=== PATIENT | female | born 1995 | race African-American/Black ===

== ENCOUNTER 2021-06-01 20:49 | Emergency (ER) | payer MEDICAID ==
[~2021-06-01] VITALS: Ht 167.6 cm; Wt 90.4 kg
[2021-06-01 21:28] LABS: BASO # 0.1 x10^3/uL (0.0-0.2); BASO % 2 % (0-3); EOS # 0.1 x10^3/uL (0.0-0.7); EOS % 2 % (0-3); HEMATOCRIT 37.3 % (36.0-47.0); HEMOGLOBIN 12.4 g/dL (12.0-15.5); LYMPH # 2.8 x10^3/uL (1.0-4.8); LYMPH % 39 % (24-48); MEAN CORPUSCULAR HEMOGLOBIN 28 pg (25-35); MEAN CORPUSCULAR HGB CONC 33 g/dL (31-37); MEAN CORPUSCULAR VOLUME 83 fL (79-100); MONO # 0.7 x10^3/uL (0.0-1.1); MONO % 10 % (0-9); NEUT # 3.3 x10^3/uL (1.8-7.7); NEUT % 47 % (31-73); PLATELET COUNT 183 x10^3/uL (140-400); RED CELL DISTRIBUTION WIDTH 13.8 % (11.5-14.5)
--- NOTE | 2021-06-01 21:42 | PHYS DOC ---
Past Medical History Past Surgical History: General Adult EDM: Chief Complaint: VAGINAL BLEEDING HPI: HPI: Patient is a 25 year old female with history of ectopic, Rh+, who is approximately 4w2d gestational age by LMP (05/02) who presents with vaginal blee ding and pelvic cramping. Patient states cramping started approximately 3 days ago. Ramps up and comes down, feels similar to contractions with previous pregnancies. Is in the suprapubic region in the midline. Has also noticed vaginal bleeding for the past 2 days. Started off heavy and has slowly tapered off. Clots were present in the first day, but has not had any since. Denies seeing any material. Has had thick brown discharge. No dysuria, urgency, frequency. States that her first ended with an ectopic in her fallopian tube, states this was able to be medically managed. Her next 2 pregnancies ended with full-term VSD. Her last ended in a full-term . Review of Systems: Review of Systems: Constitutional: Denies fever or chills. [] Eyes: Denies change in visual acuity. [] HENT: Denies nasal congestion or sore throat. [] Respiratory: Denies cough or shortness of breath. [] Cardiovascular: Denies chest pain or edema. [] GI: Denies abdominal pain, nausea, vomiting, bloody stools or diarrhea. [] : Reports vaginal bleeding, brown thick discharge, and suprapubic pelvic cr amping. Neurologic: Denies headache, focal weakness or sensory changes. [] Endocrine: Denies polyuria or polydipsia. [] Lymphatic: Denies swollen glands. [] Psychiatric: Denies depression or anxiety. [] Heart Score: C/O Chest Pain: No Allergies: Allergies: Allergies Coded Allergies Type Severity Reaction Last Updated Verified No Known Drug Allergies 06/01/21 No Physical Exam: PE: Constitutional: Well developed, well nourished, no acute distress, non-toxic appearance. [] Neck: Normal range of motion, no tenderness, supple, no stridor. [] Cardiovascular: Mild tachycardia, regular rate Lungs & Thorax: Normal work of breathing Abdomen: Soft, midline suprapubic tenderness to palpation. No tenderness towards the bilateral adnexa. Pelvic: External genitalia with normal appearance. Thick brown discharge in vaginal introitus. Cervix identified with normal appearance and no active bleeding. Cervix closed. Skin: Warm, dry, no erythema, no rash. [] Back: No tenderness, no CVA tenderness. [] Extremities: No tenderness, no cyanosis, no clubbing, ROM intact, no edema. [] Neurologic: Alert and oriented X 3, normal motor function, normal sensory function, no focal deficits noted. [] Psychologic: Affect normal, judgement normal, mood normal. [] Current Patient Data: Labs: Laboratory Tests Test 06/01/21 21:15 White Blood Count 7.0 x10^3/uL (4.0-11.0) Red Blood Count 4.50 x10^6/uL (3.50-5.40) Hemoglobin 12.4 g/dL (12.0-15.5) Hematocrit 37.3 % (36.0-47.0) Mean Corpuscular Volume 83 fL (79-100) Mean Corpuscular Hemoglobin 28 pg (25-35) Mean Corpuscular Hemoglobin Concent 33 g/dL (31-37) Red Cell Distribution Width 13.8 % (11.5-14.5) Platelet Count 183 x10^3/uL (140-400) Neutrophils (%) (Auto) 47 % (31-73) Lymphocytes (%) (Auto) 39 % (24-48) Monocytes (%) (Auto) 10 % (0-9) H Eosinophils (%) (Auto) 2 % (0-3) Basophils (%) (Auto) 2 % (0-3) Neutrophils # (Auto) 3.3 x10^3/uL (1.8-7.7) Lymphocytes # (Auto) 2.8 x10^3/uL (1.0-4.8) Monocytes # (Auto) 0.7 x10^3/uL (0.0-1.1) Eosinophils # (Auto) 0.1 x10^3/uL (0.0-0.7) Basophils # (Auto) 0.1 x10^3/uL (0.0-0.2) Laboratory Tests 06/01/21 21:15 Vital Signs: Vital Signs Date Time Temp Pulse Resp B/P (MAP) Pulse Ox O2 Delivery O2 Flow Rate FiO2 06/01/21 21:00 99.1 105 18 140/87 (104) 98 Room Air 99.1 EKG: EKG: [] Radiology/Procedures: Radiology/Procedures: [] Impression: [facility] [address] [place] [address] IMAGING REPORT Signed PATIENT: NADER KNOX ACCOUNT: [id number] : 1995 LOCATION: ER AGE: 25 SEX: F EXAM STATUS: REG ER ORD. PHYSICIAN: ASHWIN RUEDA MD REASON: LMP 05/02, vag bleeding, cramping, hx ectopic // TECH KNOWS PROCEDURE: OB <14 WKS W/TV First trimester OB ultrasound dated 06/01/2021. COMPARISON: None. Clinical data indication: Vaginal bleeding. History of ectopic . FINDINGS: Uterus measures 10.0 x 5.3 x 5.5 cm. No focal uterine mass. Endometrial complex is somewhat thickened measuring up to 9 mm. No gestational sac or pole at this time. Right ovary measures 4.0 x 3.8 x 2.2 cm. Left ovary measures 3.4 x 3.7 x 2.1 cm. Normal color flow to both ovaries. No adnexal mass or free fluid. IMPRESSION: 1. No evidence of gestational sac or pole at this time. Correlate with beta hCG values. 2. No apparent adnexal mass or free fluid. Electronically signed by: Trav Martinez MD (06/01/2021 11:15 PM) [facility] [place] and SIGNED BY: TRAV MARTINEZ MD DATE: 06/01/21 [id number] 0 Course & Med Decision Making: Course & Med Decision Making Pertinent Labs and Imaging studies reviewed. (See chart for details) Patient 25-year-old female G5, P3013, Rh+, approximately 4 weeks & 2 days gestational age by LMP with history of an ectopic who presents with suprapubic cramping and bleeding. On arrival is nontoxic appearing with stable vital signs. Pelvic exam shows a closed cervical os without active bleeding. Beta-hCG 465. Ultrasound did not show IUP, ectopic, or free fluid. At this time is unclear if this represents early viable , early miscarriage, or an early ectopic . These findings were discussed with the patient, and she understands the need for close OB follow-up. She follows with [facility]. She understands she needs to call for a follow-up beta-hCG on Thursday. We discussed return precautions for worsening pain, brisk bleeding, syncope/presyncope. Dragon Disclaimer: Dragon Disclaimer: This electronic medical record was generated, in whole or in part, using a voice recognition dictation system. Departure Departure Impression: Primary Impression: Vaginal bleeding in Disposition: HOME / SELF CARE / HOMELESS Condition: STABLE Additional Instructions: Your blood beta hCG level was 465. Your ultrasound did not show evidence of a at this time. These findings could be found in 3 separate scenarios including an early viable , early miscarriage, or early ectopic . Will be very important to follow-up with [facility] for repeat lab testing on Thursday to determine how your beta-hCG levels are trending. If you develop severe pain, worsening bleeding, feeling like you may pass out, or other new/concerning symptoms you can always return to the emergency department for reevaluation at any time. ASHWIN RUEDA MD Jun 01, 2021 21:42
[2021-06-01 21:58] LABS: BILIRUBIN,URINE NEGATIVE (NEG); CLARITY,URINE CLEAR; COLOR,URINE YELLOW; NITRITE,URINE NEGATIVE (NEG); PH,URINE 5.5 (<5.0-8.0); PROTEIN,URINE NEGATIVE (NEG-TRACE); UROBILINOGEN,URINE 0.2 mg/dL (0.2 mg/dL)
[2021-06-01 22:19] LABS: BACTERIA,URINE FEW /HPF (0-FEW); RBC,URINE OCC /HPF (0-2); WBC,URINE OCC /HPF (0-4)
[2021-06-01] MEDS ORDERED: MORPHINE SULFATE 4 MG/ML INJ. IVP ONE (23:00)
--- NOTE | 2021-06-01 23:19 | RAD ---
First trimester OB ultrasound dated 06/01/2021. COMPARISON: None. Clinical data indication: Vaginal bleeding. History of ectopic . FINDINGS: Uterus measures 10.0 x 5.3 x 5.5 cm. No focal uterine mass. Endometrial complex is somewhat thickened measuring up to 9 mm. No gestational sac or pole at this time. Right ovary measures 4.0 x 3.8 x 2.2 cm. Left ovary measures 3.4 x 3.7 x 2.1 cm. Normal color flow to both ovaries. No adnexal mass or free fluid. IMPRESSION: 1. No evidence of gestational sac or pole at this time. Correlate with beta hCG values. 2. No apparent adnexal mass or free fluid. Electronically signed by: Porfirio Martinez MD (06/01/2021 11:15 PM) KATHIE
[2021-06-02 01:00] VITALS: BP 155/81
== END 2021-06-02 01:15 | disposition home or self-care (01) ==
LOC: ER 20:49
DX: O46.91 Antepartum hemorrhage, unspecified, first trimester (principal); R10.2 Pelvic and perineal pain; Z3A.01 Less than 8 weeks gestation of pregnancy
CPT/HCPCS: 36415; 76801; 76817; 81001; 84702; 85025; 86850; 86900; 86901; 96374; 99285; J2270; Q0111

== ENCOUNTER 2021-06-17 18:30 | Emergency (ER) | payer MEDICAID ==
[~2021-06-17] VITALS: Ht 167.6 cm; Wt 90.5 kg
[2021-06-17 19:02] VITALS: BP 116/57
== END 2021-06-17 19:15 | disposition left against medical advice (07) ==
LOC: ER 18:30
DX: O46.91 Antepartum hemorrhage, unspecified, first trimester (principal); Z3A.01 Less than 8 weeks gestation of pregnancy; Z53.21 Procedure and treatment not carried out due to patient leaving prior to being seen by health care provider

== ENCOUNTER 2021-09-27 02:01 | Emergency (ER) | payer MEDICAID ==
[~2021-09-27] VITALS: Ht 167.6 cm; Wt 93.0 kg
[2021-09-27] MEDS ORDERED: IV NORMAL SALINE 1000ML BAG 1,000 ML IV ONE (02:15)
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
[2021-09-27] MEDS ORDERED: ONDANSETRON PF 4 MG/2 ML VIAL. IVP ONE (02:30)
[2021-09-27 02:38] LABS: BASO % 0 % (0-3); EOS # 0.1 x10^3/uL (0.0-0.7); EOS % 2 % (0-3); HEMATOCRIT 35.3 % (36.0-47.0); HEMOGLOBIN 11.6 g/dL (12.0-15.5); LYMPH # 3.2 x10^3/uL (1.0-4.8); LYMPH % 58 % (24-48); MEAN CORPUSCULAR HEMOGLOBIN 27 pg (25-35); MEAN CORPUSCULAR HGB CONC 33 g/dL (31-37); MEAN CORPUSCULAR VOLUME 81 fL (79-100); MONO # 0.5 x10^3/uL (0.0-1.1); MONO % 9 % (0-9); NEUT # 1.7 x10^3/uL (1.8-7.7); NEUT % 31 % (31-73); PLATELET COUNT 189 x10^3/uL (140-400); RED BLOOD COUNT 4.36 x10^6/uL (3.50-5.40); RED CELL DISTRIBUTION WIDTH 14.4 % (11.5-14.5); WHITE BLOOD COUNT 5.6 x10^3/uL (4.0-11.0)
[2021-09-27 02:48] LABS: CALCIUM 8.5 mg/dL (8.5-10.1); CREATININE 0.9 mg/dL (0.6-1.0); GFR 91.6; POTASSIUM 3.6 mmol/L (3.5-5.1)
[2021-09-27 02:53] LABS: ALBUMIN 3.1 g/dL (3.4-5.0); ALBUMIN/GLOBULIN RATIO 0.8 (1.0-1.7); TOTAL BILIRUBIN 0.1 mg/dL (0.2-1.0)
--- NOTE | 2021-09-27 03:23 | RAD ---
XR CHEST 2V History: Reason: chest pain / Spl. Instructions: / History: Comparison: None available. Findings: The cardiomediastinal silhouette is normal. Pulmonary vasculature is normal. The lungs are clear. No pleural effusion or pneumothorax is seen. There is no acute bone abnormality. IMPRESSION: No acute cardiopulmonary process. Electronically signed by: Gordon Renner MD (09/27/2021 3:21 AM) [facility]
[2021-09-27] MEDS ORDERED: LIDO:MAALOX 1:1 20 ML SINGLE DOSE. SWSW ONE (03:30)
[2021-09-27 04:54] VITALS: BP 114/69
== END 2021-09-27 04:57 | disposition home or self-care (01) ==
LOC: ER 02:01
DX: K21.00 Gastro-esophageal reflux disease with esophagitis, without bleeding (principal); F17.200 Nicotine dependence, unspecified, uncomplicated
CPT/HCPCS: 36415; 71046; 80053; 83690; 85025; 96361; 96374; 99284; J2405; J7030